=== PATIENT | female | born 1985 | race Caucasian/White ===

== ENCOUNTER 2017-06-10 16:50 | Emergency (ER) | payer BC ==
[~2017-06-10] VITALS: Ht 160 cm; Wt 80.0 kg
[~2017-06-10 16:50] MED LIST: HYDR-762 PO
[2017-06-10 17:03] VITALS: Ht 160 cm; Wt 80.0 kg
[2017-06-10] MEDS ORDERED: ONDANSETRON 4 MG INJ IV STA (18:11)
[2017-06-10] MEDS ORDERED: KETOROLAC 30 MG INJ IV STA (18:11)
--- NOTE | 2017-06-10 18:11 | ERD ---
ER Documentation Chief Complaint Date/Time DATE: 06/10/17 TIME: 18:00 Chief Complaint AP SINCE SATURDAY, VOMITING AND DIARRHEA HPI 31-year-old female who presents emergency department for abdominal pain since Saturday, vomiting since Saturday, diarrhea since last night. Stated that she vomited more than 10 times in the past 24 hours nonbilious and nonbloody emesis. Had a loose/diarrhea like stools able times for the last 24 hours. Her abdominal pain started on her epigastric area to her lower abdominal area. No known drug allergies. Was at [place] last Saturday, blood works was done. Stated she was discharged with Strawberry. LMP: 05/24/2017. M1. Denies headache, dizziness, blurry vision, neck pain, throat pain, difficulty swallowing, shoulder pain, back pain, changes in diet, recent exposure to any illness, loss bowel and bladder control, urinary symptoms, , possibility of being , recent antibiotic use in the last 3 months. No past medical history. Surgical history of cholecystectomy. Medication: Strawberry. Social: Works as a customer service. Denies smoking, use of alcohol, use of illegal drugs. ROS All systems reviewed and are negative except as per history of present illness. Medications Home Meds Active Scripts Acetaminophen* (Tylophen*) 500 Mg Capsule, 1 CAP PO Q6H Y for PAIN AND OR ELEVATED TEMP, #20 CAP Prov:ZAIRA CARTER 06/10/17 Ondansetron (Ondansetron Odt) 4 Mg Tab.rapdis, 4 MG PO Q8 Y for NAUSEA AND/OR VOMITING, #20 TAB Prov:ZAIRA CARTER 06/10/17 Famotidine* (Pepcid*) 20 Mg Tablet, 20 MG PO DAILY for 30 Days, TAB Prov:ZAIRA CARTER 06/10/17 Reported Medications Hydrocodone Bit-Acetaminophen* (Strawberry*) 10-325 Mg Tablet, 1 TAB PO Q4H Y for PAIN, TAB 06/16/15 Allergies Allergies: Coded Allergies: No Known Drug Allergies (Verified Allergy, Mild, 06/16/15) PMhx/Soc History of Surgery: Yes (CHOLECYSTECTOMY) Anesthesia Reaction: No Hx Neurological Disorder: No Hx Respiratory Disorders: No Hx Cardiac Disorders: No Hx Psychiatric Problems: No Hx Miscellaneous Medical Probl: No Hx Alcohol Use: No Hx Substance Use: No Hx Tobacco Use: No Smoking Status: Never smoker Physical Exam Vitals Vital Signs Date Time Temp Pulse Resp B/P Pulse Ox O2 Delivery O2 Flow Rate FiO2 06/10/17 17:03 98.9 62 18 130/79 99 Physical Exam Const: [] Head: Atraumatic Eyes: Normal Conjunctiva ENT: Normal External Ears, Nose and Mouth. Neck: Full range of motion..~ No meningismus. Resp: Clear to auscultation bilaterally Cardio: Regular rate and rhythm, no murmurs Abd: Normal bowel sounds. Epigastric tenderness on light and deep palpation during inspiration. Unable to jump due to abdominal pain. No CVA tenderness. Has difficulty walking due to abdominal pain. Skin: No petechiae or rashes Back: No midline or flank tenderness Ext: No cyanosis, or edema Neur: Awake and alert Psych: Normal Mood and Affect Result Diagram: 06/10/17184206/10/171842 Results 24 hrs Laboratory Tests Test 06/10/17 18:43 06/10/17 18:53 White Blood Count 6.210^3/ul Red Blood Count 4.2510^6/ul Hemoglobin 13.3g/dl Hematocrit 39.5% Mean Corpuscular Volume 92.9fl Mean Corpuscular Hemoglobin 31.3pg Mean Corpuscular Hemoglobin Concent 33.7g/dl Red Cell Distribution Width 12.0% Platelet Count 63533^3/UL Mean Platelet Volume 10.6fl Neutrophils % 61.6% Lymphocytes % 27.3% Monocytes % 8.0% Eosinophils % 2.7% Basophils % 0.2% Nucleated Red Blood Cells % 0.0/100WBC Neutrophils # 3.810^3/ul Lymphocytes # 1.710^3/ul Monocytes # 0.510^3/ul Eosinophils # 0.210^3/ul Basophils # 0.010^3/ul Nucleated Red Blood Cells # 0.010^3/ul Sodium Level 141mmol/L Potassium Level 3.9mmol/L Chloride Level 106mmol/L Carbon Dioxide Level 26mmol/L Anion Gap 13 Blood Urea Nitrogen 5mg/dl Creatinine 0.60mg/dl Glucose Level 86mg/dl Calcium Level 9.1mg/dl Total Bilirubin 0.5mg/dl Direct Bilirubin 0.00mg/dl Indirect Bilirubin 0.5mg/dl Aspartate Amino Transf (AST/SGOT) 29IU/L Alanine Aminotransferase (ALT/SGPT) 40IU/L Alkaline Phosphatase 92IU/L Total Protein 7.4g/dl Albumin 3.9g/dl Globulin 3.50g/dl Albumin/Globulin Ratio 1.11 Amylase Level 73U/L Lipase 60U/L Beta HCG, Quantitative < 2.4mIU/ml Urine Color YELLOW Urine Clarity CLEAR Urine pH 5.0 Urine Specific [place] 1.013 Urine Ketones NEGATIVEmg/dL Urine Nitrite NEGATIVEmg/dL Urine Bilirubin NEGATIVEmg/dL Urine Urobilinogen 1+mg/dL Urine Leukocyte Esterase NEGATIVELeu/ul Urine Microscopic RBC 1/HPF Urine Microscopic WBC 1/HPF Urine Bacteria FEW/HPF Urine Hemoglobin 1+mg/dL Urine Glucose NEGATIVEmg/dL Urine Total Protein NEGATIVEmg/dl Current Medications Medications (Trade) Dose Ordered Sig/Igor Route PRN Reason Start Time Stop Time Status Last Admin Dose Admin Ondansetron HCl (Zofran Inj) 4 mg ONCE STAT IV 06/10/17 18:11 06/10/17 18:16 DC 06/10/17 19:14 Ketorolac Tromethamine 30 mg 30 mg ONCE STAT IV 06/10/17 18:11 06/10/17 18:16 DC 06/10/17 19:14 Sodium Chloride (NS) 500 ml @ 500 mls/hr Q1H ONCE IV 06/10/17 18:30 06/10/17 19:29 DC 06/10/17 19:13 IV Flush 10 ml 10 ml STK-MED ONCE .ROUTE 06/10/17 19:56 06/10/17 19:57 DC 06/10/17 20:04 Sodium Chloride (NS) 100 ml @ ud STK-MED ONCE .ROUTE 06/10/17 19:56 06/10/17 19:57 DC 06/10/17 20:04 Iohexol (Omnipaque 300mg/ ml) 150 ml STK-MED ONCE .ROUTE 06/10/17 19:56 06/10/17 19:57 DC 06/10/17 20:04 Procedures/MDM 31-year-old female who presents emergency department for abdominal pain since Saturday, vomiting since Mike, diarrhea since last night. Stated that she vomited more than 10 times in the past 24 hours nonbilious and nonbloody emesis. Had a loose/diarrhea like stools able times for the last 24 hours. Her abdominal pain started on her epigastric area to her lower abdominal area. No known drug allergies. Was at [facility] last Saturday, blood works was done. Stated she was discharged with Strawberry. LMP: 05/24/2017. M1. Denies headache, dizziness, blurry vision, neck pain, throat pain, difficulty swallowing, shoulder pain, back pain, changes in diet, recent exposure to any illness, loss bowel and bladder control, urinary symptoms, , possibility of being , recent antibiotic use in the last 3 months. No past medical history. Surgical history of cholecystectomy. Medication: Strawberry. Social: Works as a customer service. Denies smoking, use of alcohol, use of illegal drugs. Physical exam: Respirations even and unlabored. Regular rate and rhythm with a heart. Lung sounds are clear to auscultation. Epigastric tenderness on light and deep palpation during inspiration. Unable to jump due to abdominal pain. No CVA tenderness. Has difficulty walking due to abdominal pain. This process was explained to the patient and family member. They both verbalized understanding and agreed with the treatment, diagnostic test, plan of care. POC urine : Negative. Urinalysis: Reviewed. Culture urine: Serum quantitative: Reviewed. Chest x-ray: No acute cardiopulmonary disease. Blood works: Negative. CT of the abdomen and pelvis with IV contrast: No mass, lymphadenopathy, or focal acute inflammatory process is identified. Normal appendix. Status post cholecystectomy. No biliary ductal dilatation. Treatment: IV insertion. No saline IV bolus. Toradol IV. Current IV. Reevaluation: Denies headache, dizziness, blurred vision, neck pain, shoulder pain, chest pain, back pain, abdominal pain. Lung sounds are clear to auscultation. There is no right upper/right lower/epigastric/left upper/left lower abdominal tenderness and light and deep palpation. Negative on Rovsing's sign. Negative Tessa sign. Negative and psoas sign. No peritoneal signs. No CVA tenderness. Ambulatory with steady gait and without difficulty and without pain to abdomen. No neurovascular deficits. No neurological deficits. Differential diagnosis: Appendicitis versus pancreatitis versus diverticulitis versus nephrolithiasis versus pyelonephritis versus urinary tract infection Diagnosis: Abdominal pain, viral gastroenteritis, gastritis Prescription: Pepcid. Tylenol. Tramadol. Zofran. Follow-up with primary care physician next 24-48 hours. Come back here in the emergency department for any new symptoms or any worsening of symptoms. All questions and concerns are answered. Patient verbalized understanding and agreed with the plan of care. Hemodynamically stable on discharge. Departure Diagnosis: Primary Impression: Abdominal pain Additional Impressions: Gastritis Viral gastroenteritis Condition: Stable Additional Instructions: Follow-up with primary care physician next 24-48 hours. Come back here in the emergency department for any new symptoms or any worsening of symptoms. All questions and concerns are answered. Patient verbalized understanding and agreed with the plan of care. ZAIRA CARTER Jun 10, 2017 18:11
[2017-06-10] MEDS ORDERED: SOD CHLORIDE 0.9% 500 ML IV ONE (18:30)
[2017-06-10 19:16] LABS: BASOPHILS % 0.2 % (0.0-2.0); EOSINOPHILS # 0.2 10^3/ul (0.0-0.5); EOSINOPHILS % 2.7 % (0.0-7.0); HEMATOCRIT 39.5 % (37.0-47.0); HEMOGLOBIN 13.3 g/dl (12.0-16.0); LYMPHOCYTES # 1.7 10^3/ul (0.8-2.9); LYMPHOCYTES % 27.3 % (15.0-51.0); MEAN CORPUSCULAR HEMOGLOBIN 31.3 pg (29.0-33.0); MEAN CORPUSCULAR HGB CONC 33.7 g/dl (32.0-37.0); MEAN CORPUSCULAR VOLUME 92.9 fl (82.0-101.0); MEAN PLATELET VOLUME 10.6 fl (7.4-10.4); MONOCYTE # 0.5 10^3/ul (0.3-0.9); NEUTROPHIL # 3.8 10^3/ul (1.6-7.5); NEUTROPHILS % 61.6 % (39.0-77.0); PLATELET COUNT 231 10^3/UL (140-415); RED BLOOD COUNT 4.25 10^6/ul (4.20-5.40); WHITE BLOOD COUNT 6.2 10^3/ul (4.8-10.8)
[2017-06-10 19:22] LABS: ADD UMIC YES; UR ASCORBIC ACID NEGATIVE (NEGATIVE); UR BACTERIA FEW /HPF (NONE SEEN); UR BILIRUBIN (Dip) NEGATIVE (NEGATIVE); UR BLOOD (Dip) 1+ mg/dL (NEGATIVE); UR CLARITY CLEAR (CLEAR); UR COLOR YELLOW (YELLOW); UR GLUCOSE (Dip) NEGATIVE (NEGATIVE); UR KETONES (Dip) NEGATIVE (NEGATIVE); UR LEUKOCYTE ESTERASE (Dip) NEGATIVE Leu/ul (NEGATIVE); UR NITRITE (Dip) NEGATIVE (NEGATIVE); UR RBC 1 /HPF (0-5); UR SPECIFIC GRAVITY (Dip) 1.013 (1.003-1.030); UR TOTAL PROTEIN (Dip) NEGATIVE (NEGATIVE); UR UROBILINOGEN (Dip) 1+ mg/dL (NEGATIVE)
--- NOTE | 2017-06-10 19:32 | RADRPT ---
PROCEDURE: XR Chest. CLINICAL INDICATION: Chest pain TECHNIQUE: PA and lateral view of the chest were obtained COMPARISON: 06/03/2007 FINDINGS: The cardiomediastinal silhouette is within normal limits. The lungs and pleural spaces are clear. The soft tissues and osseous structures are unremarkable. IMPRESSION: No acute cardiopulmonary disease. RPTAT: HPNM Physician Ash Date Time Electronically viewed and signed by Juan Carlos Pugh Physician on 06/10/2017 19:32 /
[2017-06-10 19:35] LABS: BILIRUBIN,INDIRECT 0.5 mg/dl (0-1.1); BILIRUBIN,TOTAL 0.5 mg/dl (0.2-1.3); CALCIUM 9.1 mg/dl (8.4-10.2); CREATININE 0.6 mg/dl (0.44-1.00); POTASSIUM 3.9 mmol/L (3.5-5.1)
[2017-06-10 19:38] LABS: ALBUMIN 3.9 g/dl (3.3-4.9); ALBUMIN/GLOBULIN RATIO 1.11; TOTAL PROTEIN 7.4 g/dl (6.1-8.1)
[2017-06-10] MEDS ORDERED: SOD CHLORIDE 0.9% 100 ML ONE (19:56)
[2017-06-10] MEDS ORDERED: IOHEXOL 300MG/ML 150 ML BTL ONE (19:56)
--- NOTE | 2017-06-10 21:20 | RADRPT ---
PROCEDURE: CT Abdomen and Pelvis with contrast. CLINICAL INDICATION: Abdominal pain TECHNIQUE: CT scan of the abdomen and pelvis with contrast was performed on a multi-detector high- resolution CT scanner. The patient was scanned following the uncomplicated intravenous administrati on of 100 cc of Omnipaque-300. Coronal and sagittal reformatted images were obtained from the axial source images. Images were reviewed on a high-resolution PACS workstation. The total exam CTDI equa ls 12.11 mGy and the total exam DLP equals 683.32 mGy-cm. One or more of the following dose reduction techniques were used: Automated exposure control. Adjustment of the mA and/or kV according to patient size. Use of iterative reconstruction technique. COMPARISON: None. FINDINGS: CT abdomen: The lung bases are clear. The heart size is normal, without pericardial thickening or effusion. Th e liver is normal in size and density without focal mass or intrahepatic biliary dilatation. The sp godfrey is normal in size and homogeneous in density. The stomach is partially collapsed, but is gross ly unremarkable. The pancreas as visualized is normal. The gallbladder is surgically absent. Ther e is no evidence for biliary dilatation. The adrenal glands are symmetric and normal. The kidneys are symmetrically unremarkable as well. No renal calculus or obstructive uropathy or mass lesion is seen. The aorta is of normal caliber. There is no retroperitoneal lymphadenopathy. The brea hepatis frances on is clear. The bowel and mesentery, as visualized, are equally unremarkable. CT pelvis: The small bowel loops situated within the pelvis are unremarkable. The appendix is normal. IUD is in satisfactory position. The pelvic organs are normal. The pelvic sidewalls and inguinal regions are clear. The sigmoid colon and rectum are unremarkable. No mass, lymphadenopathy, or free fluid is seen. No acute inflammation is seen. The bladder is normal. The surrounding osseous structures are unremarkable. No osteolytic or osteoblastic lesion is detected. IMPRESSION: 1. No mass, lymphadenopathy, or focal acute inflammatory process is identified. 2. Normal appendix. 3. Status post cholecystectomy. No biliary ductal dilatation. 4. IUD in satisfactory position. RPTAT: [facility] .Niko Santana MD, MD Date Time Electronically viewed and signed by .Niko Santana MD, on 06/10/2017 21:19 .O/
[2017-06-10] MEDS ORDERED: FAMO-96 PO (21:26)
[2017-06-10] MEDS ORDERED: ACET500C5 PO (21:27)
[2017-06-10] MEDS ORDERED: ONDA4TAB14 PO (21:27)
== END 2017-06-10 21:39 | disposition home or self-care (01) ==
LOC: FTE 16:50
DX: A08.4 Viral intestinal infection, unspecified (principal)
CPT/HCPCS: 71020; 74177; 80053; 81001; 82150; 83690; 84702; 85025; 96374; 96375; 99285; J1885; J2405; J7040; Q9967; Z7610